=== PATIENT | male | born 1965 | race Caucasian/White ===

== ENCOUNTER → 2016-09-01 | Outpatient (CLI) | payer BC | LOC: OD 16:19 | PROVIDERS: ATTEND Nurse Practitioner | DX: M25.511 Pain in right shoulder (principal); M19.011 Primary osteoarthritis, right shoulder; M54.2 Cervicalgia; M47.892 Other spondylosis, cervical region | CPT/HCPCS: 72050 ==

== ENCOUNTER → 2016-09-15 | Outpatient (CLI) | payer BC | LOC: SP 14:58 | PROVIDERS: ATTEND Nurse Practitioner | DX: I70.8 Atherosclerosis of other arteries (principal) | CPT/HCPCS: 93880 ==

== ENCOUNTER 2016-09-25 07:30 | Day surgery (SDC) | payer BC ==
[~2016-09-25 07:30] MED LIST: DIPHENHYDRAMINE HCL 50 MG/ML VIAL ONE; EPINEPHRINE INJ 1 MG/10 ML DISP.SYRIN ONE; FENTANYL CITRATE INJ/PF 100 MCG/2 ML AMPUL ONE; FLUMAZENIL INJ 0.5 MG/5 ML VIAL IV ONE; GLUCAGON,HUMAN RECOMB 1 MG INJ ONE; MIDAZOLAM 2 MG/2 ML INJ ONE; NALOXONE HCL INJ/PF 0.4 MG/1 ML SDV ONE; ONDANSETRON HCL INJ/PF 4 MG/2 ML SDV ONE; PROMETHAZINE HCL INJ 25 MG/1 ML VIAL ONE
[2016-09-25] MEDS: MIDAZOLAM 2 MG/2 ML INJ ONE ×2 (08:07→08:11)
[2016-09-25 09:25] VITALS: BP 162/92
--- NOTE | 2016-09-25 11:33 | Operative Report ---
Operative Report DATE OF SURGERY: 09/25/16 Operative Report: The risks, benefits and alternatives are explained to the patient detail and informed consent is obtained. Patient is placed in a left lateral decubital position. Timeout is called. Conscious sedation medications administered. A rectal examination was done which did not reveal any masses, tears or fissures. An Olympus was scope is inserted into the patient's rectum. The scope was then gradually advanced all the way to the cecum. The cecum was identified by the usual anatomical landmarks including the ileocecal valve as well as the appendiceal office. Photodocumentation was obtained. Prep is good. Scope was then sequentially pulled back via the various segments of the colon including the ascending colon, hepatic flexure, transverse colon, splenic flexure, descending colon and finally into the rectosigmoid colon. Retroflexion maneuvers performed. PREOPERATIVE DIAGNOSIS: Colon rectal cancer screening POSTOPERATIVE DIAGNOSIS: 2 polyps noted in the descending colon area removed via snare polypectomy; 1 polyp was retrieved ,the other was ablated in situ. OPERATION: Colonoscopy with snare polypectomy SURGEON: BRUNILDA CHUNG ANESTHESIA: Moderate Sedation - 6 mg of Versed, 100 g of fentanyl. Conscious sedation monitoring time 30 minutes. TISSUE REMOVED OR ALTERED: Specimen retrieved is noted. COMPLICATIONS: None. ESTIMATED BLOOD LOSS: none. INTRAOPERATIVE FINDINGS: Findings as described above. No AVMs, diverticulosis noted PROCEDURE: Patient tolerated the procedure well. No immediate postprocedure complications are noted. Patient is discharged in good condition. Discharge date 09/25/2016. Discharge diet: Regular. Discharge activity: Regular. Five-year colon surveillance depending on the pathology of the polyp. Patient is instructed to call the office or proceed to the emergency room after any further problems or questions. We'll await on biopsies. Patient does have a 2-3 week follow-up to discuss findings.
== END 2016-09-25 09:26 | disposition home or self-care (01) ==
LOC: END 07:30
PROVIDERS: ATTEND Internal Medicine Gastroenterology
PROC: 0DBM8ZX Excision of Descending Colon, Via Natural or Artificial Opening Endoscopic, Diagnostic (ICD-10-PCS; principal; 2016-09-25 08:00)
DX: D12.4 Benign neoplasm of descending colon (principal); K92.1 Melena; I10 Essential (primary) hypertension; F17.210 Nicotine dependence, cigarettes, uncomplicated; Z79.899 Other long term (current) drug therapy
CPT/HCPCS: 45385; 88305 ×2; J2250; J3010; J0171; J1200; J1610; J2310; J2405; J2550; J3490

== ENCOUNTER → 2016-11-10 | Outpatient (CLI) | payer BC | LOC: RAD 15:37 | PROVIDERS: ATTEND Urology | DX: N20.0 Calculus of kidney (principal) | CPT/HCPCS: 74178; 82565 ==

== ENCOUNTER 2018-10-19 09:08 | Day surgery (SDC) | payer BC, OTHER ==
[~2018-10-19 09:08] MED LIST changes: +D5W IV PRN; -DIPHENHYDRAMINE HCL 50 MG/ML VIAL ONE; +DISPOSABLE IV PRN; -EPINEPHRINE INJ 1 MG/10 ML DISP.SYRIN ONE; -FENTANYL CITRATE INJ/PF 100 MCG/2 ML AMPUL ONE; -FLUMAZENIL INJ 0.5 MG/5 ML VIAL IV ONE; -GLUCAGON,HUMAN RECOMB 1 MG INJ ONE; -MIDAZOLAM 2 MG/2 ML INJ ONE; -NALOXONE HCL INJ/PF 0.4 MG/1 ML SDV ONE; +NITROGLYCERIN IV PRN; -ONDANSETRON HCL INJ/PF 4 MG/2 ML SDV ONE; -PROMETHAZINE HCL INJ 25 MG/1 ML VIAL ONE
[2018-10-19] MEDS ORDERED: LIDOCAINE 1% INJ-PF (10 MG/ML) 30 ML SDV ONE (10:17)
[2018-10-19] MEDS ORDERED: HEPARIN SODIUM,PORCINE/NS/PF 2,000 UNIT/1,000 ML RTUINJ IV ONE (10:18)
[2018-10-19] MEDS ORDERED: MIDAZOLAM 2 MG/2 ML INJ ONE (10:21)
[2018-10-19] MEDS ORDERED: HEPARIN SOD (PORCINE) 1,000 UNIT/ML 10 ML VIAL ONE (10:22)
[2018-10-19] MEDS ORDERED: FENTANYL CITRATE INJ/PF 100 MCG/2 ML AMPUL ONE (10:22)
[2018-10-19] MEDS ORDERED: DIPHENHYDRAMINE HCL 25 MG CAPSULE ONE (10:46)
[2018-10-19] MEDS ORDERED: DIAZEPAM 5 MG TABLET ONE (10:47)
[2018-10-19] MEDS ORDERED: ASPIRIN 325 MG TABLET ONE (10:47)
[2018-10-19] MEDS ORDERED: NITROGLYCERIN/D5W 50 MG/250 ML RTUINJ IV ONE (11:24)
--- NOTE | 2018-10-19 11:59 | Operative Report ---
Operative Report DATE OF SURGERY: 10/19/18 Operative Report: Left heart catheterization with selective coronary angiography PREOPERATIVE DIAGNOSIS: Chest pain POSTOPERATIVE DIAGNOSIS: Normal left-sided filling pressures. No evidence of significant aortic valve disease. Single-vessel coronary artery disease manifest by 70% stenosis of the mid vessel of a small codominant left-sided PDA OPERATION: Left heart catheterization with selective coronary angiography SURGEON: CARITO MORA ANESTHESIA: Moderate Sedation TISSUE REMOVED OR ALTERED: None COMPLICATIONS: None ESTIMATED BLOOD LOSS: None INTRAOPERATIVE FINDINGS: Normal left-sided filling pressures. No evidence of significant aortic stenosis. Single-vessel coronary artery disease manifest by a 70% stenosis of a small left-sided PDA PROCEDURE: Consent signed and on chart. Patient was prepped and draped in the usual sterile fashion and brought to the cardiac catheterization laboratory in the fasting state. Moderate conscious sedation was performed for 12 minutes. An independent trained observer pressure medications at my direction and continuous hemodynamic monitoring was performed. Utilizing a standard technique after 1% Xylocaine was demonstrated, the right radial artery was successfully cannulated. After 5000 units of heparin were administered and 200 mcg of nitroglycerin were administered left heart catheterization with subsequent coronary angiography was performed of the tiger catheter. Catheter selectively engaged the left circumflex was not able to be brought around to selectively engage the LAD Hemodynamics: In the sedated fasting state left ventricular pressure is 98/6 wi th an LVDP of 7. There is no significant transaortic gradient on pullback. Aortic pressure was 101/67. Selective coronary angiography was performed the following findings #1 The left main is short and length and moderate to large in caliber and bifurcates in the LAD and left circumflex and has mild luminal irregularities. The LAD is of moderate caliber and very tortuous and terminates at the apex. It provides a normal complement of septal perforators. There are 2 small diagonal branches. It is moderately calcific and has mild luminal irregularities. 3. The left circumflex is a large caliber vessel. It is codominant. It provides a small first obtuse marginal branch and 3 large obtuse marginal branches. There is a smaller left-sided codominant PDA. The left circumflex has mild luminal irregularities. The left-sided PDA has a 70% stenosis in a small caliber vessel. the right coronary small and tortuous and is codominant with a moderate to small sized right-sided PDA. It is otherwise free of significant disease Impression #1 normal left-sided filling pressures 2. No evidence of significant transaortic gradient on pullback. 3. Single-vessel coronary disease manifest by a 70% stenosis of the left-sided codominant PDA and a small caliber vessel. Plan #1 maximize medical therapy 2. Recommend longitudinal follow-up by patient's primary office agent.
--- NOTE | 2018-10-19 12:01 | Discharge Summary ---
Discharge Summary (SDC) - Discharge Final Diagnosis: Normal left-sided filling pressures No evidence of significant transaortic gradient on pullback. Single-vessel coronary disease manifest by 70% stenosis in a small left-sided codominant PDA Date of Surgery: 10/19/18 Discharge Date: 10/19/18 Condition: Good Referrals: LEILA BOOKER MD [Primary Care Provider] - Discharge Diet: Cardiac Discharge Activity: Activity As Tolerated, Balance Activity w/Rest, Bedrest, No Driving, Energy Conservation, Keep Legs Elevated, No Lifting Over 10 Pounds, No Lifting/Push/Pulling, Non-Ambulatory Child, Pelvic Rest, Slowly Increase Activity, Supervised Activity, No tub bath, Walk Frequently, Weigh Daily, Other
[2018-10-19 14:42] VITALS: BP 130/78
== END 2018-10-19 14:48 | disposition home or self-care (01) ==
LOC: CCL 09:08
PROVIDERS: ATTEND Internal Medicine Cardiovascular Disease
DX: R07.9 Chest pain, unspecified (principal); I25.10 Atherosclerotic heart disease of native coronary artery without angina pectoris
CPT/HCPCS: 93458; C1894; J2250; J3010; J1644 ×2; J3490 ×3

== ENCOUNTER 2018-10-20 11:52 | Emergency (ER) | payer OTHER ==
--- NOTE | 2018-10-20 12:37 | ER Document Report ---
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 ROS: Other than noted above, the 12 point review of systems was reviewed with the patient and were negative, all pertinent findings are included in the HPI. PHYSICAL EXAMINATION: Vital signs reviewed. GENERAL: Well-appearing, well-nourished and in no acute distress. HEAD: Atraumatic, normocephalic. EYES: Pupils equal round extraocular movements intact, conjunctiva are normal. ENT: Nares patent NECK: Normal range of motion CV: Heart regular rate and rhythm LUNGS: No respiratory distress Musculoskeletal: Normal range of motion, right upper extremity, there is mild diffuse edema to the right hand, Coban wrap removed, good radial pulse, good cap refill in all digits, no tenderness or swelling in the upper arm. NEUROLOGICAL: Normal speech PSYCH: Normal mood, normal affect. MDM: Patient seen and examined for rapid initial assessment. Vital signs reviewed. A comprehensive ED assessment and evaluation of the patient, analysis of test results and completion of the medical decision making process will be conducted by additional ED providers. *Note is created using voice recognition software and may contain spelling, syntax or grammatical errors. TRAVEL OUTSIDE OF THE [place] IN LAST 30 DAYS: No - Related Data Allergies/Adverse Reactions: No Known Allergies Allergy (Verified 10/20/18 11:53) Past Medical History - Social History Frequency of alcohol use: Social - Past Medical History Cardiac Medical History: Denies: Hx Coronary Artery Disease, Hx Heart Attack, Hx Hypertension Pulmonary Medical History: Denies: Hx Asthma, Hx Bronchitis, Hx COPD, Hx Pneumonia Neurological Medical History: Reports: Hx Cerebrovascular Accident - BLEED, NUMBNESS IN RIGHT LEG. Denies: Hx Seizures Renal/ Medical History: Denies: Hx Peritoneal Dialysis Musculoskeltal Medical History: Reports Hx Arthritis - Immunizations Hx Diphtheria, Pertussis, Tetanus Vaccination: Yes History of Influenza Vaccine for 04/2017 - 09/2017 Season: No Physical Exam - Vital signs Vitals: Temp Pulse Resp BP Pulse Ox 98.0 F 91 18 148/94 H 92 10/20/18 11:59 10/20/18 11:59 10/20/18 11:59 10/20/18 11:59 10/20/18 11:59 Course - Vital Signs Vital signs: Temp Pulse Resp BP Pulse Ox 98.0 F 91 18 148/94 H 92 10/20/18 11:59 10/20/18 11:59 10/20/18 11:59 10/20/18 11:59 10/20/18 11:59 Doctor's Discharge - Discharge Referrals: LEILA BOOKER MD [Primary Care Provider] - Follow up as needed
--- NOTE | 2018-10-20 13:52 | ER Document Report ---
ED General - General Chief Complaint: Arm Problem Stated Complaint: RIGHT ARM SWELLING Time Seen by Provider: 10/20/18 12:20 Primary Care Provider: CARITO MORA MD [ASSOCIATE] - Follow up in 3-5 days LEILA BOOKER MD [NO LOCAL MD] - Follow up as needed Notes: Patient is a 53-year-old male that presents to the emergency department for chief complaint of right arm swelling, had left heart cath yesterday through rad ial procedure, at this hospital, he had swelling in his hand and some pain, he had a tight Coban wrap, that was removed in triage here, still feeling some pressure, was told to get a venous duplex by his fleece tier office. He describes having some pain associated with it, as an aching sensation he rates as a 3 out of 10, and as a pressure. He denies having any chest pain, shortness of breath, difficulty breathing today, denies any nausea, vomiting or abdominal pain. Denies any prior history of blood clots in the past. Past Medical History: CAD, hypertension, hyperlipidemia Past Surgical History: Left heart catheterization Social History: Former smoker, denies current alcohol or illicit drug use. Family History: Reviewed and noncontributory for presenting illness Allergies: Reviewed, see documented allergy list. ROS: Other than noted above, the 12 point review of systems was reviewed with the patient and were negative, all pertinent findings are included in the HPI. PHYSICAL EXAMINATION: Vital signs reviewed. Nursing notes reviewed. GENERAL: Well-appearing, well-nourished and in no acute distress. HEAD: Atraumatic, normocephalic. EYES: Pupils equal round extraocular movements intact, conjunctiva are normal. ENT: Nares patent NECK: Normal range of motion CV: Heart regular rate and rhythm LUNGS: No respiratory distress Abdomen: Obese, soft, nontender. Musculoskeletal: Normal range of motion, right upper extremity, there is mild diffuse edema to the right hand, without erythema, Coban wrap removed, good radial pulse, good cap refill in all digits, no tenderness or swelling in the upper arm. The rest the patient's extremity exam is grossly unremarkable. NEUROLOGICAL: Normal speech PSYCH: Normal mood, normal affect. TRAVEL OUTSIDE OF THE [place] IN LAST 30 DAYS: No - Related Data Allergies/Adverse Reactions: No Known Allergies Allergy (Verified 10/20/18 11:53) Past Medical History - Social History Smoking Status: Former Smoker Frequency of alcohol use: Social Family History: Reviewed & Not Pertinent Patient has suicidal ideation: No Patient has homicidal ideation: No - Past Medical History Cardiac Medical History: Denies: Hx Coronary Artery Disease, Hx Heart Attack, Hx Hypertension Pulmonary Medical History: Denies: Hx Asthma, Hx Bronchitis, Hx COPD, Hx Pneumonia Neurological Medical History: Reports: Hx Cerebrovascular Accident - BLEED, NUMBNESS IN RIGHT LEG. Denies: Hx Seizures Renal/ Medical History: Denies: Hx Peritoneal Dialysis Musculoskeletal Medical History: Reports Hx Arthritis - Immunizations Hx Diphtheria, Pertussis, Tetanus Vaccination: Yes Physical Exam - Vital signs Vitals: Temp Pulse Resp BP Pulse Ox 98.0 F 91 18 148/94 H 92 10/20/18 11:59 10/20/18 11:59 10/20/18 11:59 10/20/18 11:59 10/20/18 11:59 Course - Re-evaluation Re-evalutation: Patient seen and examined vital signs reviewed. Imaging ordered as appropriate for the patient's presenting symptoms and complaint, with consideration of any critical or life threatening conditions that may be associated with their obtained history and exam as noted above. Results were reviewed when available and demonstrated negative duplex imaging of the right upper extremity The patient was re-evaluated and was stable Evaluation was most consistent with hand swelling and edema and pain secondary to dressing, which has since been removed, advised to keep the patient's arm elevated, to reduce the edema, he can also apply cool compresses at home for 20 minutes. Results were discussed with the patient at this point, after careful consideration I feel that that patient can be discharged from the emergency department, the patient was educated treatments and reasons to return to the emergency department based on their presumed diagnosis as noted above, they were advised to followup with a primary care physician in 2-3 days. Patient was agreeable to plan of care. *Note is created using voice recognition software and may contain spelling, syntax or grammatical errors. Venous Doppler Study 10/20/18 12:35 IMPRESSION: Negative examination for deep venous thrombosis in the right upper extremity. - Vital Signs Vital signs: Temp Pulse Resp BP Pulse Ox 98.4 F 79 18 142/98 H 97 10/20/18 13:59 10/20/18 13:59 10/20/18 13:59 10/20/18 13:59 10/20/18 13:59 Discharge - Discharge Clinical Impression: Arm swelling Condition: Stable Disposition: HOME, SELF-CARE Instructions: Edema, Peripheral ([facility]) Additional Instructions: Please follow-up with your fleece tier, I would advise you to keep your arm elevated while you are at home on a few pillows to keep it above your heart, to help reduce the swelling, you can also apply cool compress for 20 minutes on and 20 minutes off to the hand to help reduce the swelling as well. Referrals: LEILA BOOKER MD [NO LOCAL MD] - Follow up as needed CARITO MORA MD [ASSOCIATE] - Follow up in 3-5 days
[2018-10-20 14:01] VITALS: BP 142/98
--- NOTE | 2018-10-20 14:35 | RADIOLOGY REPORT (SQ) ---
EXAM DESCRIPTION: VENOUS UNILATERAL UPPER COMPLETED DATE/TIME: 10/20/2018 2:22 pm REASON FOR STUDY: RUE swelling recent heart cath COMPARISON: None. TECHNIQUE: Dynamic and static rodriguez scale and color images acquired of the right arm venous system. S elected spectral images acquired with additional compression and augmentation maneuvers. The contrala teral subclavian vein and internal jugular vein were also imaged. Images stored on PACS. LIMITATIONS: None. FINDINGS: INTERNAL JUGULAR VEIN: Normal phasicity, compression, augmentation. No visualized echogeni c material on rodriguez scale. No defects on color images. Comparison opposite side normal. SUBCLAVIAN VEIN: Normal compression, augmentation. No visualized echogenic material on rodriguez scale. No defects on color images. AXILLARY VEIN: Normal compression, augmentation. No visualized echogenic material on rodriguez scale. No d efects on color images. BRACHIAL VEIN: Normal compression, augmentation. No visualized echogenic material on rodriguez scale. No d efects on color images. BASILIC VEIN: Normal compression, augmentation. No visualized echogenic material on rodriguez scale. No de fects on color images. CEPHALIC VEIN: Normal compression, augmentation. No visualized echogenic material on rodriguez scale. No d efects on color images. OTHER: No other significant finding. IMPRESSION: Negative examination for deep venous thrombosis in the right upper extremity. TECHNICAL DOCUMENTATION: JOB ID: [id number] [employer]- All Rights Reserved Reading location - IP/workstation name: [email or web address]
== END 2018-10-20 14:02 | disposition home or self-care (01) ==
LOC: ER 11:52
DX: M79.89 Other specified soft tissue disorders (principal); Z98.890 Other specified postprocedural states; I25.10 Atherosclerotic heart disease of native coronary artery without angina pectoris; I10 Essential (primary) hypertension; E78.5 Hyperlipidemia, unspecified; Z87.891 Personal history of nicotine dependence
CPT/HCPCS: 93971; 99283

== ENCOUNTER → 2018-11-02 | Outpatient (CLI) | payer OTHER ==
--- NOTE | 2018-11-02 12:20 | RADIOLOGY REPORT (SQ) ---
EXAM DESCRIPTION: CERV SP 3 VIEW OR LESS COMPLETED DATE/TIME: 11/02/2018 11:32 am REASON FOR STUDY: NUMBNESS AND TINGLING OF RIGHT ARM (R20.0) R20.0 ANESTHESIA OF SKIN COMPARISON: None. NUMBER OF VIEWS: Three views. TECHNIQUE: AP, lateral and odontoid radiographic images acquired of the cervical spine. LIMITATIONS: Limited evaluation of C7 secondary to overlying soft tissues. . FINDINGS: MINERALIZATION: Normal. ALIGNMENT: Anatomic. VERTEBRAE: Vertebral bodies of normal height. DISCS: Mild disc height loss and osteophytosis at C6-7. Remaining discs are relatively well-maintain ed. HARDWARE: None in the spine. SOFT TISSUES: No discrete masses. Vascular calcifications noted. Lung apices clear. OTHER: No other significant finding. IMPRESSION: No acute bony abnormality of the cervical spine. Mild degenerative disc disease and osteophytosis greatest at C6-7. TECHNICAL DOCUMENTATION: JOB ID: [id number] [employer]- All Rights Reserved Reading location - IP/workstation name: [email or web address]
== END ==
LOC: RAD 11:00
PROVIDERS: ATTEND Nurse Practitioner Primary Care
DX: M54.12 Radiculopathy, cervical region (principal); R20.0 Anesthesia of skin
CPT/HCPCS: 72040

== ENCOUNTER → 2019-03-09 | Outpatient (CLI) | payer OTHER ==
--- NOTE | 2019-03-09 15:19 | RADIOLOGY REPORT (SQ) ---
EXAM DESCRIPTION: CT ABD/PELVIS NO ORAL OR IV COMPLETED DATE/TIME: 03/09/2019 1:03 pm REASON FOR STUDY: R33.9 RETENTION OF URINE, UNSPECIFIED R33.9 RETENTION OF URINE, UNSPECIFIED COMPARISON: None. TECHNIQUE: CT scan of the abdomen and pelvis performed without intravenous or oral contrast. Images reviewed with lung, soft tissue, and bone windows. Reconstructed coronal and sagittal MPR images revi ewed. All images stored on PACS. All CT scanners at this facility use dose modulation, iterative reconstruction, and/or weight based d osing when appropriate to reduce radiation dose to as low as reasonably achievable (ALARA). [facility]: Dose Right [facility]: CareDose [facility]: Dose Right [facility]: Teradose 4D [facility]: [employer] RADIATION DOSE: CT Rad equipment meets quality standard of care and radiation dose reduction techniq ues were employed. CTDIvol: 27.6 mGy. DLP: 1458 mGy-cm.mGy. LIMITATIONS: None. FINDINGS: LOWER CHEST: No significant findings. No nodules or infiltrates. NON-CONTRASTED LIVER, SPLEEN, ADRENALS: The liver is slightly heterogeneous, suggesting areas of foca l fatty infiltration. The spleen and adrenal glands are normal. PANCREAS: No masses. No peripancreatic inflammatory changes. GALLBLADDER: No identified stones by CT criteria. No inflammatory changes to suggest cholecystitis. RIGHT KIDNEY AND URETER: No suspicious masses. Assessment limited by lack of IV contrast. Numerous nonobstructing intrarenal calculi are present. No hydronephrosis or hydroureter. LEFT KIDNEY AND URETER: No suspicious masses. 9 cm upper pole cyst. Assessment limited by lack of I V contrast. There are numerous nonobstructing intrarenal calculi. No hydronephrosis or hydrourete r. AORTA AND RETROPERITONEUM: No aneurysm. No retroperitoneal masses or adenopathy. BOWEL AND PERITONEAL CAVITY: No obvious masses or inflammatory changes. No free fluid. APPENDIX: Normal. PELVIS, BLADDER, AND ABDOMINAL WALL:There is some thickening of the wall of the bladder. BONES: No significant findings. OTHER: No other significant finding. IMPRESSION: There are numerous nonobstructing intrarenal calculi bilaterally. There is no ureteral stone or obstruction. There is a 9 cm left renal cyst. There is thickening of the wall of the bladd er versus nondistention. Cannot entirely exclude some degree of bladder outlet obstruction, but the prostate gland does not appear significantly enlarged. COMMENT: Quality ID # [id number]: Final reports with documentation of one or more dose reduction techniques (e.g., Automated exposure control, adjustment of the mA and/or kV according to patient size, use of iterative reconstruction technique) TECHNICAL DOCUMENTATION: JOB ID: [id number] [employer]- All Rights Reserved Reading location - IP/workstation name: [email or web address]
== END ==
LOC: RAD 12:45
PROVIDERS: ATTEND Urology
DX: R33.9 Retention of urine, unspecified (principal)
CPT/HCPCS: 74176

== ENCOUNTER 2019-05-19 13:01 | Emergency (ER) | payer OTHER ==
--- NOTE | 2019-05-19 14:07 | ER Document Report ---
ED Medical Screen (RME) - General Chief Complaint: Flank Pain Stated Complaint: LEFT SIDE FLANK PAIN Time Seen by Provider: 05/19/19 13:56 Primary Care Provider: ARLETH ALVARENGA MD [Primary Care Provider] - Follow up as needed Notes: 53-year-old male with history of nephrolithiasis and recent ureteral stent placement and removal presents to the emergency department for ongoin left flank pain. Patient is unsure what the problem is but has had persistent pain and "I want answers". Denies fevers or chills, denies nausea or vomiting, complains of abdominal pain, denies any urinary symptoms or obstruction. Exam: Well-appearing in no acute distress, lungs clear to auscultation in all lindsay, regular cardiac rate and rhythm, no CVAT bilateral I have greeted and performed a rapid initial assessment of this patient. A comprehensive ED assessment and evaluation of the patient, analysis of test results and completion of medical decision making process will be conducted by an additional ED providers. TRAVEL OUTSIDE OF THE [place] IN LAST 30 DAYS: No - Related Data Allergies/Adverse Reactions: No Known Allergies Allergy (Verified 10/20/18 11:53) Past Medical History - Social History Chew tobacco use (# tins/day): No Frequency of alcohol use: Occasional Drug Abuse: None - Past Medical History Cardiac Medical History: Denies: Hx Coronary Artery Disease, Hx Heart Attack, Hx Hypertension Pulmonary Medical History: Denies: Hx Asthma, Hx Bronchitis, Hx COPD, Hx Pneumonia Neurological Medical History: Reports: Hx Cerebrovascular Accident - BLEED, NUMBNESS IN RIGHT LEG. Denies: Hx Seizures Renal/ Medical History: Denies: Hx Peritoneal Dialysis Musculoskeltal Medical History: Reports Hx Arthritis - Immunizations Hx Diphtheria, Pertussis, Tetanus Vaccination: Yes Physical Exam - Vital signs Vitals: Temp Pulse Resp BP Pulse Ox 98.2 F 86 16 117/91 H 93 05/19/19 13:16 05/19/19 13:16 05/19/19 13:16 05/19/19 13:16 05/19/19 13:16 Course - Vital Signs Vital signs: Temp Pulse Resp BP Pulse Ox 98.2 F 86 16 117/91 H 93 05/19/19 13:16 05/19/19 13:16 05/19/19 13:16 05/19/19 13:16 05/19/19 13:16 Doctor's Discharge - Discharge Referrals: ARLETH ALVARENGA MD [Primary Care Provider] - Follow up as needed
[2019-05-19] MEDS ORDERED: KETOROLAC TROMETHAMINE INJ/PF 30 MG/1 ML SDV IV ONE (14:08)
[2019-05-19 14:50] LABS: ABSOLUTE BASOPHILS # (AUTO) 0.1 10^3/uL (0.0-0.2); ABSOLUTE EOSINOPHILS # (AUTO) 0.4 10^3/uL (0.0-0.6); ABSOLUTE LYMPHOCYTES (AUTO) 1.9 10^3/uL (0.5-4.7); ABSOLUTE MONOCYTES (AUTO) 0.6 10^3/uL (0.1-1.4); BASOPHILS % (AUTO) 1.1 % (0-2); EOSINOPHILS % (AUTO) 5.4 % (0-6); HEMATOCRIT 50.3 % (37.9-51.0); LYMPHOCYTES % (AUTO) 23.7 % (13-45); MEAN CORPUSCULAR HEMOGLOBIN 31.6 pg (27.0-33.4); MEAN CORPUSCULAR HGB CONC 33.9 g/dL (32.0-36.0); MEAN CORPUSCULAR VOLUME 93 fl (80-97); MONOCYTES % (AUTO) 7.2 % (3-13); PLATELET COUNT 236 10^3/uL (150-450); RED BLOOD COUNT 5.38 10^6/uL (4.35-5.55); RED CELL DISTRIBUTION WIDTH 13.2 % (11.5-14.0); SEGMENTED NEUTROPHILS % (AUTO) 62.6 % (42-78); TOTAL CELLS COUNTED % (AUTO) 100 %
--- NOTE | 2019-05-19 15:40 | RADIOLOGY REPORT (SQ) ---
EXAM DESCRIPTION: U/S RETROPERITON (RENAL/AORTA) COMPLETED DATE/TIME: 05/19/2019 3:15 pm REASON FOR STUDY: ?calculi L side COMPARISON: CT of abdomen and pelvis without contrast 03/09/2019. TECHNIQUE: Dynamic and static grayscale images acquired of the kidneys and bladder and recorded on P ACS. Additional selected color Doppler and spectral images recorded. LIMITATIONS: None. FINDINGS: RIGHT KIDNEY: The right kidney measures 14.4 x 5.8 x 7.3 cm. There are multiple echodensi ties within the right kidney consistent with changes of a small renal calculi. No hydronephrosis. LEFT KIDNEY: The left kidney measures 14.2 x 6.3 x 6.7 cm. There are multiple echodensities within the left kidney consistent with multiple small renal calculi, largest measuring 0.9 cm. . Prominent simple cyst upper pole left kidney measuring 9.9 x 11.1 x 7.8 cm. Small adjacent cortical cyst note d. No hydronephrosis. BLADDER:: No abnormality seen. IMPRESSION: Multiple bilateral renal calculi. Simple cortical cyst upper pole left kidney. TECHNICAL DOCUMENTATION: JOB ID: [id number] [employer]- All Rights Reserved Reading location - IP/workstation name: [email or web address]
--- NOTE | 2019-05-19 15:53 | ER Document Report ---
ED General - General Chief Complaint: Flank Pain Stated Complaint: LEFT SIDE FLANK PAIN Time Seen by Provider: 05/19/19 13:56 Primary Care Provider: ARLETH ALVARENGA MD [Primary Care Provider] - Follow up as needed Notes: 53-year-old male with reported history of kidney stones, left ureteral stent is followed followed by Dr. Alvarenga and an unknown urologist who he says he try to get a hold off presents with about 3 days of worsening left flank pain. He is having intermittent left flank pain for about 6 weeks since the stent was placed and removed but denies fever belly pain nausea or vomiting. No hematuria. Nor mal urine output. TRAVEL OUTSIDE OF THE [place] IN LAST 30 DAYS: No - Related Data Allergies/Adverse Reactions: No Known Allergies Allergy (Verified 10/20/18 11:53) Past Medical History - Social History Smoking Status: Former Smoker Chew tobacco use (# tins/day): No Frequency of alcohol use: Occasional Drug Abuse: None Family History: Reviewed & Not Pertinent Patient has suicidal ideation: No Patient has homicidal ideation: No - Past Medical History Cardiac Medical History: Denies: Hx Coronary Artery Disease, Hx Heart Attack, Hx Hypertension Pulmonary Medical History: Denies: Hx Asthma, Hx Bronchitis, Hx COPD, Hx Pneumonia Neurological Medical History: Reports: Hx Cerebrovascular Accident - BLEED, NUMBNESS IN RIGHT LEG. Denies: Hx Seizures Renal/ Medical History: Denies: Hx Peritoneal Dialysis Musculoskeletal Medical History: Reports Hx Arthritis - Immunizations Hx Diphtheria, Pertussis, Tetanus Vaccination: Yes Review of Systems - Review of Systems Notes: REVIEW OF SYSTEMS GEN: Denies fever, chills, weight loss ENT: Denies sore throat, nasal discharge, ear pain EYES: Denies blurry vision, eye pain, discharge CV: Denies chest pain, palpitations, edema RESP: Denies cough, shortness of breath, wheezing GI: Denies abdominal pain, nausea, vomiting, diarrhea MSK: Back pain SKIN: Denies rash, skin lesions LYMPH: Denies swollen glands/lymph nodes NEURO: Denies headache, focal weakness or numbness, dizziness PSYCH: Denies depression, suicidal or homicidal ideation PHYSICAL EXAMINATION General: No acute distress, well-nourished Head: Atraumatic, normocephalic ENT: Mouth normal, oropharynx moist, no exudates or tonsillar enlargement Eyes: Conjunctiva normal, pupils equal, lids normal Neck: No JVD, supple, no guarding CVS: Normal rate, regular rhythm, no murmurs Resp: No resp distress, equal and normal breath sounds bilaterally GI: Nondistended, soft, no tenderness to palpation, no rebound or guarding Ext: No deformities, no edema, normal range of motion in upper and lower ext Back: No CVA or midline TTP Skin: No rash, warm Lymphatic: No lymphadeopathy noted Neuro: Awake, alert. Face symmetric. GCS 15. Physical Exam - Vital signs Vitals: Temp Pulse Resp BP Pulse Ox 98.2 F 86 16 117/91 H 93 05/19/19 13:16 05/19/19 13:16 05/19/19 13:16 05/19/19 13:16 05/19/19 13:16 Course - Re-evaluation Re-evalutation: 05/19/19 16:14 Intermittent flank pain after ureteral stenting without lower urinary tract is not hematuria, tenderness or fever. Ultrasound ordered at triage is bilateral small stones but no hydronephrosis. That is likely been removed at the patient reports. Urine does not show evidence of florid urinary inflammationantibiotic tonight negative. He looks quite comfortable after Toradol. Will recommend Motrin and follow-up with urology. No indication for CT or septic work-up at this time. I have discussed with the patient there likely diagnosis, aftercare plan, follow- up plans and my usual and customary return precautions. They verbalized understanding of this. - Vital Signs Vital signs: Temp Pulse Resp BP Pulse Ox 98.2 F 86 16 117/91 H 93 05/19/19 13:16 05/19/19 13:16 05/19/19 13:16 05/19/19 13:16 05/19/19 13:16 - Laboratory Result Diagrams: 05/19/19 14:15 05/19/19 14:15 Laboratory results interpreted by me: 05/19/19 14:31 Urine Ascorbic Acid 40 H Discharge - Discharge Clinical Impression: Bilateral nephrolithiasis Condition: Good Disposition: HOME, SELF-CARE Instructions: Kidney Stone ([facility]) Additional Instructions: call your UROLOGIST for follow up in 3 days- may need further stents Prescriptions: Ibuprofen 600 mg PO Q6HP PRN 14 Days capsule PRN Reason: Referrals: ARLETH ALVARENGA MD [Primary Care Provider] - Follow up as needed
[2019-05-19 15:59] LABS: APPEARANCE,URINE CLEAR; BILIRUBIN,URINE NEGATIVE (NEGATIVE); COLOR,URINE YELLOW; GLUCOSE, URINE NEGATIVE (NEGATIVE); KETONES,URINE NEGATIVE (NEGATIVE); LEUKOCYTE ESTERASE,URINE NEGATIVE (NEGATIVE); NITRITE,URINE NEGATIVE (NEGATIVE); PROTEIN,URINE NEGATIVE (NEGATIVE); URINE SPECIFIC GRAVITY 1.016; UROBILINOGEN,URINE NEGATIVE mg/dL (<2.0)
[2019-05-19 16:36] VITALS: BP 125/81
== END 2019-05-19 16:35 | disposition home or self-care (01) ==
LOC: ER 13:01
DX: N20.0 Calculus of kidney (principal); R10.9 Unspecified abdominal pain; M54.9 Dorsalgia, unspecified; Z98.890 Other specified postprocedural states; Z87.891 Personal history of nicotine dependence
CPT/HCPCS: 99284; 96374; 81001; 76770; J1885; 36415; 85025

== ENCOUNTER → 2019-06-02 | Outpatient (CLI) | payer OTHER ==
--- NOTE | 2019-06-02 11:17 | RADIOLOGY REPORT (SQ) ---
EXAM DESCRIPTION: CT ABD/PELVIS NO ORAL OR IV COMPLETED DATE/TIME: 06/02/2019 9:58 am REASON FOR STUDY: NEPHROLITHIASIS (N20.0) N20.0 CALCULUS OF KIDNEY COMPARISON: 03/09/2019 TECHNIQUE: CT scan of the abdomen and pelvis performed without intravenous or oral contrast. Images reviewed with lung, soft tissue, and bone windows. Reconstructed coronal and sagittal MPR images revi ewed. All images stored on PACS. All CT scanners at this facility use dose modulation, iterative reconstruction, and/or weight based d osing when appropriate to reduce radiation dose to as low as reasonably achievable (ALARA). [facility]: Dose Right [facility]: CareDose [facility]: Dose Right [facility]: Teradose 4D [facility]: [employer] RADIATION DOSE: CT Rad equipment meets quality standard of care and radiation dose reduction techniq ues were employed. CTDIvol: 28.7 mGy. DLP: 1651 mGy-cm.mGy. LIMITATIONS: None. FINDINGS: LOWER CHEST: No significant findings. No nodules or infiltrates. NON-CONTRASTED LIVER, SPLEEN, ADRENALS: Evaluation limited by lack of IV contrast. No identified sign ificant masses. PANCREAS: No masses. No peripancreatic inflammatory changes. GALLBLADDER: No identified stones by CT criteria. No inflammatory changes to suggest cholecystitis. RIGHT KIDNEY AND URETER: No suspicious masses. Assessment limited by lack of IV contrast. Numerous nonobstructing intrarenal calculi. No hydronephrosis or hydroureter. LEFT KIDNEY AND URETER: No solid masses. There is an 8 cm upper pole cyst. There are numerous nono bstructing intrarenal calculi. No hydronephrosis or hydroureter. AORTA AND RETROPERITONEUM: No aneurysm. No retroperitoneal masses or adenopathy. BOWEL AND PERITONEAL CAVITY: No obvious masses or inflammatory changes. No free fluid. APPENDIX: The appendix is thickened, measuring 10 mm. There is no juan appendiceal stranding, howeve r. PELVIS, BLADDER, AND ABDOMINAL WALL:There is thickening of the bladder wall. No pelvic mass or fluid collection. Uncomplicated inguinal hernias, right more than left. BONES: No significant findings. OTHER: No other significant finding. IMPRESSION: 1. There are numerous intrarenal calculi bilaterally. No ureteral stone or obstruction . 2. Thickening of the bladder wall. Correlate for cystitis or bladder outlet obstruction. 3. The appendix is thickened. There is no juan appendiceal stranding. Correlate for appendicitis. COMMENT: Quality ID # 436: Final reports with documentation of one or more dose reduction techniques (e.g., Automated exposure control, adjustment of the mA and/or kV according to patient size, use of iterative reconstruction technique) TECHNICAL DOCUMENTATION: JOB ID: [id number] [employer]- All Rights Reserved Reading location - IP/workstation name: [email or web address]
== END ==
LOC: RAD 09:42
PROVIDERS: ATTEND Urology
DX: N20.0 Calculus of kidney (principal)
CPT/HCPCS: 74176

== ENCOUNTER 2019-06-26 14:58 | Emergency (ER) | payer OTHER ==
--- NOTE | 2019-06-26 15:45 | ER Document Report ---
ED Medical Screen (RME) - General Chief Complaint: Feet Swelling Stated Complaint: FOOT SWELLING Time Seen by Provider: 06/26/19 15:41 Primary Care Provider: ARLETH ALVARENGA MD [Primary Care Provider] - Follow up as needed Mode of Arrival: Ambulatory Information source: Patient Notes: Patient presents complaining of bilateral lower extremity swelling for the past 2 weeks. Patient also complains of swelling to the hands and abdomen. Patient states he has been short of breath and having to sleep in his recliner. Patient denies any cough or cold symptoms. Patient denies any history of CHF. Patient does have a history of hypertension and CAD. I have greeted and performed a rapid initial assessment of this patient. A comprehensive ED assessment and evaluation of the patient, analysis of test results and completion of the medical decision making process will be conducted by additional ED providers. TRAVEL OUTSIDE OF THE [place] IN LAST 30 DAYS: No - Related Data Allergies/Adverse Reactions: No Known Allergies Allergy (Verified 10/20/18 11:53) Past Medical History - Past Medical History Cardiac Medical History: Denies: Hx Coronary Artery Disease, Hx Heart Attack, Hx Hypertension Pulmonary Medical History: Denies: Hx Asthma, Hx Bronchitis, Hx COPD, Hx Pneumonia Neurological Medical History: Reports: Hx Cerebrovascular Accident - BLEED, NUMBNESS IN RIGHT LEG. Denies: Hx Seizures Renal/ Medical History: Denies: Hx Peritoneal Dialysis Musculoskeltal Medical History: Reports Hx Arthritis - Immunizations Hx Diphtheria, Pertussis, Tetanus Vaccination: Yes Physical Exam - Vital signs Vitals: Temp Pulse Resp BP Pulse Ox 97.6 F 72 18 159/87 H 97 06/26/19 15:09 06/26/19 15:09 06/26/19 15:09 06/26/19 15:09 06/26/19 15:09 - General General appearance: Alert Notes: 3+ edema to bilateral lower extremities, respirations unlabored Course - Vital Signs Vital signs: Temp Pulse Resp BP Pulse Ox 97.6 F 72 18 159/87 H 97 06/26/19 15:09 06/26/19 15:09 06/26/19 15:09 06/26/19 15:09 06/26/19 15:09 Doctor's Discharge - Discharge Referrals: ARLETH ALVARENGA MD [Primary Care Provider] - Follow up as needed
[2019-06-26 16:29] LABS: ABSOLUTE EOSINOPHILS # (AUTO) 0.8 10^3/uL (0.0-0.6); ABSOLUTE LYMPHOCYTES (AUTO) 1.7 10^3/uL (0.5-4.7); ABSOLUTE MONOCYTES (AUTO) 0.5 10^3/uL (0.1-1.4); ABSOLUTE NEUT (AUTO) 4.7 10^3/uL (1.7-8.2); BASOPHILS % (AUTO) 0.3 % (0-2); EOSINOPHILS % (AUTO) 9.7 % (0-6); HEMATOCRIT 48.4 % (37.9-51.0); HEMOGLOBIN 16.8 g/dL (13.5-17.0); LYMPHOCYTES % (AUTO) 22.3 % (13-45); MEAN CORPUSCULAR HEMOGLOBIN 32.3 pg (27.0-33.4); MEAN CORPUSCULAR HGB CONC 34.7 g/dL (32.0-36.0); MEAN CORPUSCULAR VOLUME 93 fl (80-97); MONOCYTES % (AUTO) 6.9 % (3-13); PLATELET COUNT 210 10^3/uL (150-450); RED BLOOD COUNT 5.21 10^6/uL (4.35-5.55); RED CELL DISTRIBUTION WIDTH 13.2 % (11.5-14.0); SEGMENTED NEUTROPHILS % (AUTO) 60.8 % (42-78); TOTAL CELLS COUNTED % (AUTO) 100 %; WHITE BLOOD COUNT 7.8 10^3/uL (4.0-10.5)
--- NOTE | 2019-06-26 16:35 | RADIOLOGY REPORT (SQ) ---
EXAM DESCRIPTION: CHEST 2 VIEWS COMPLETED DATE/TIME: 06/26/2019 4:17 pm REASON FOR STUDY: sob COMPARISON: CT of the abdomen pelvis without contrast from 06/02/2019. EXAM PARAMETERS: NUMBER OF VIEWS: two views TECHNIQUE: Digital Frontal and Lateral radiographic views of the chest acquired. RADIATION DOSE: NA LIMITATIONS: none FINDINGS: LUNGS AND PLEURA: Left basilar atelectasis. No consolidation, pleural effusion or pneumot horax. MEDIASTINUM AND HILAR STRUCTURES: No mediastinal or hilar contour abnormality. HEART AND VASCULAR STRUCTURES: The cardiac silhouette and pulmonary vasculature are within normal atkins its. BONES: No acute findings. HARDWARE: None in the chest. OTHER: No other finding. IMPRESSION: Left basilar atelectasis. No acute cardiopulmonary process. TECHNICAL DOCUMENTATION: JOB ID: [id number] [employer]- All Rights Reserved Reading location - IP/workstation name: [email or web address]
[2019-06-26 16:47] LABS: ALBUMIN 4.4 g/dL (3.5-5.0); ALKALINE PHOSPHATASE 73 U/L (38-126); ANION GAP 9 (5-19); ASPARTATE AMINO TRANSFERASE 30 U/L (17-59); BILIRUBIN,DIRECT 0.1 mg/dL (0.0-0.4); BILIRUBIN,TOTAL 0.5 mg/dL (0.2-1.3); BLOOD UREA NITROGEN 16 mg/dL (7-20); CALCIUM 9.7 mg/dL (8.4-10.2); CARBON DIOXIDE 26 mmol/L (22-30); CHLORIDE 102 mmol/L (98-107); GLUCOSE 105 mg/dL (75-110); POTASSIUM 4.6 mmol/L (3.6-5.0); TOTAL PROTEIN 8.5 g/dL (6.3-8.2)
[2019-06-26 16:59] LABS: NT PRO BNP 145 pg/mL (<125)
[2019-06-26 17:04] LABS: TROPONIN I < 0.012 ng/mL
[2019-06-26] MEDS ORDERED: FUROSEMIDE INJ/PF 20 MG/2 ML SDV IV ONE (17:19)
--- NOTE | 2019-06-26 18:55 | ER Document Report ---
ED General - General Mode of Arrival: Ambulatory TRAVEL OUTSIDE OF THE [place] IN LAST 30 DAYS: No <JUSTIN SEWELL - Last Filed: 06/26/19 19:41> <FELIPE FIELD - Last Filed: 06/26/19 23:21> - General Chief Complaint: Swelling Stated Complaint: FOOT SWELLING Time Seen by Provider: 06/26/19 15:41 Primary Care Provider: ARLETH ALVARENGA MD [NO LOCAL MD] - Follow up as needed Notes: 53-year-old male presents with bilateral lower extremity swelling for the past several weeks. Patient also states he has been having some swelling in his hands and abdomen. Patient also states he is having some dyspnea which is worse with laying flat. Patient states for the last several days he has been sleeping in a recliner. Patient also states he is having some mild chest discomfort. Patient states he had similar chest discomfort a few years ago and was worked up by cardiology and was told that it was GERD. Patient states he usually gets better with his reflux medicine however he does not always remember to take it. Patient states he has a past medical history of stroke, kidney stones, hypertension. Patient denies history of CHF. Patient states he has told his primary care doctor about the swelling however it has "never been this bad before." Patient also states he has had a 40 pound weight gain in 6 months. Patient denies fever, chills, abdominal pain, nausea/vomiting, diarrhea. (JUSTIN SEWELL) - Related Data Allergies/Adverse Reactions: No Known Allergies Allergy (Verified 10/20/18 11:53) Past Medical History - General Information source: Patient - Social History Smoking Status: Former Smoker Family History: Reviewed & Not Pertinent Patient has suicidal ideation: No Patient has homicidal ideation: No - Past Medical History Cardiac Medical History: Denies: Hx Coronary Artery Disease, Hx Heart Attack, Hx Hypertension Pulmonary Medical History: Denies: Hx Asthma, Hx Bronchitis, Hx COPD, Hx Pneumonia Neurological Medical History: Reports: Hx Cerebrovascular Accident - BLEED, NUMBNESS IN RIGHT LEG. Denies: Hx Seizures Renal/ Medical History: Denies: Hx Peritoneal Dialysis Musculoskeletal Medical History: Reports Hx Arthritis - Immunizations Hx Diphtheria, Pertussis, Tetanus Vaccination: Yes <JUSTIN SEWELL - Last Filed: 06/26/19 19:41> Review of Systems <JUSTIN SEWELL R - Last Filed: 06/26/19 19:41> - Review of Systems Notes: Constitutional: Positive for weight gain. Negative for fever. HENT: Negative for sore throat. Eyes: Negative for visual changes. Cardiovascular: Positive for chest pain. Respiratory: Positive for shortness of breath. Gastrointestinal: Positive for abdominal distention. Negative for abdominal pain, vomiting or diarrhea. Genitourinary: Negative for dysuria. Musculoskeletal: Positive for bilateral leg/hand swelling. Negative for back pain. Skin: Negative for rash. Neurological: Negative for headaches, weakness or numbness. 10 point ROS negative except as marked above and in HPI. (JUSTIN SEWELL) Physical Exam <SEWELLLARISSAJUSTIN R - Last Filed: 06/26/19 19:41> - Vital signs Vitals: Temp Pulse Resp BP Pulse Ox 97.6 F 72 18 159/87 H 97 06/26/19 15:09 06/26/19 15:09 06/26/19 15:09 06/26/19 15:09 06/26/19 15:09 - Notes Notes: GENERAL: Well-appearing, well-nourished and in no acute distress. HEAD: Atraumatic, normocephalic. EYES: Extraocular movements intact, sclera anicteric, conjunctiva are normal. NECK: Normal range of motion, supple without lymphadenopathy or JVD. LUNGS: Breath sounds clear to auscultation bilaterally and equal. No wheezes rales or rhonchi. No tachypnea. HEART: Regular rate and rhythm without murmurs, rubs or gallops. ABDOMEN: Soft, nontender, mild abdominal distention. No guarding, no rebound. No masses appreciated. EXTREMITIES: 2+ pitting edema to bilateral lower extremities. No appreciable edema to upper extremities. Normal range of motion. No clubbing or cyanosis. NEUROLOGICAL: Cranial nerves II through XII grossly intact. Normal speech, normal gait. PSYCH: Normal mood, normal affect. SKIN: Warm, Dry, normal turgor, no rashes or lesions noted. (JUSTIN SEWELL) Course - Laboratory Result Diagrams: 06/26/19 16:10 06/26/19 16:10 <JUSTIN SEWELL - Last Filed: 06/26/19 19:41> - Laboratory Result Diagrams: 06/26/19 16:10 06/26/19 16:10 <FELIPE FIELD - Last Filed: 06/26/19 23:21> - Re-evaluation Re-evalutation: 06/26/19 53 y/o male presents with orthopnea and bilateral LE edema with abdomin al distention. Nontoxic, well appearing. SpO2 is 94-98% on RA. Lungs clear to auscultation bilaterally. RRR. Abd soft, mildly distended. Bilateral LE 2+ pitting edema. CXR shows mild atelectasis. BNP mildly elevated. No leukocytosis. CMP WNL. Troponin negative. 06/26/19 18:56 Pt ambulated on RA with SpO2 - 94-95% and felt mildly short of breath. US tech states neg for DVT. 06/26/19 19:41 D-dimer mildly elevated. CTA chest ordered. (JUSTIN SEWELL) 06/26/19 20:40 Report received from previous shift. Patient currently pending CTA. I was called to the bedside as patient was refusing his CTA stating that he cannot lay flat. Patient reevaluated, his lungs are clear, he is alert, oriented, handling secretions without difficulty. I will medicate patient with 1 mg of Ativan IV, will also add on a CT soft tissue neck as patient continues to report that he cannot swallow due to some type of what he perceives as an obstruction in the back of his throat. 06/26/19 23:14 CT soft tissue neck and CT a of the chest were both negative for any acute findings. There was a small pulmonary nodule noted on CT, recommend follow-up in 12 months with repeat imaging. This was discussed with the patient. Patient does report symptomatic improvement after administration of a GI cocktail here in the emergency department. He will close follow-up with his primary care. ED return precautions discussed, patient verbalized understanding and agreement with same. (FELIPE FIELD) - Vital Signs Vital signs: Temp Pulse Resp BP Pulse Ox 97.6 F 72 18 134/98 H 94 06/26/19 15:09 06/26/19 15:09 06/26/19 20:01 06/26/19 20:01 06/26/19 20:01 - Laboratory Laboratory results interpreted by me: 06/26/19 06/26/1919 16:10 16:10 16:10 Eos % (Auto) 9.7 H Absolute Eos (auto) 0.8 H D-Dimer NT-Pro-B Natriuret Pep 145 H Total Protein 8.5 H 06/26/19 16:10 Eos % (Auto) Absolute Eos (auto) D-Dimer 0.71 H NT-Pro-B Natriuret Pep Total Protein Discharge <JUSTIN SEWELL R - Last Filed: 06/26/19 19:41> <RASHIDAFELIPE C - Last Filed: 06/26/19 23:21> - Discharge Clinical Impression: Lower extremity edema, Postnasal drip Condition: Stable Disposition: HOME, SELF-CARE Additional Instructions: Your work-up here in the emergency department today did not reveal any life- threatening abnormalities. A copy of all your lab results as well as radiology testing is provided in this packet so that your primary care provider can review it. We also did a venous Doppler ultrasound to both of your lower extremities to evaluate for DVT/blood clots. These tests were negative. Your chest x-ray and blood work did not show any evidence of congestive heart failure. You are likely suffering from peripheral edema, your primary care provider may want to start you on a diuretic for this. As discussed there was a small pulmonary nodule noted on your CT, and the radiologist recommends follow-up on this within 12 months. Please take the results to your primary care provider so that they can address these findings. Please take medications that I have prescribed to help with your postnasal drip/throat discomfort. Drink plenty of fluids. C onsider purchasing some compression stockings to help with your lower extremity edema. Return to the emergency department with any new or worsening symptoms. Please purchase CORICIDIN HBP for your symptoms. Ask your pharmacist to help you find this. Prescriptions: Prednisone [Deltasone] 60 mg PO DAILY #15 tablet Referrals: ARLETH ALVARENGA MD [NO LOCAL MD] - Follow up as needed
--- NOTE | 2019-06-26 19:28 | RADIOLOGY REPORT (SQ) ---
EXAM DESCRIPTION: KUB/ABDOMEN (SINGLE VIEW) COMPLETED DATE/TIME: 06/26/2019 7:10 pm REASON FOR STUDY: abd distention COMPARISON: 06/02/2019. NUMBER OF VIEWS: One view. TECHNIQUE: Supine radiographic image of the abdomen acquired. LIMITATIONS: None. FINDINGS: BOWEL GAS PATTERN: Normal bowel gas pattern. No dilated loops. Formed stool throughout th e colon. CALCIFICATIONS: Multiple calcifications overlying both kidneys compatible with renal stones. Additio nal calcific densities overlie the pelvis, likely pelvic phleboliths although distal ureteral stone i s not entirely excluded. SOFT TISSUES: No gross mass or suggestion of organomegaly. HARDWARE: None in the abdomen. BONES: No acute fracture. No worrisome bone lesions. OTHER: No other significant finding. IMPRESSION: No evidence of intestinal obstruction or other acute intra-abdominal/pelvic process. Multiple bilateral renal stones. TECHNICAL DOCUMENTATION: JOB ID: [id number] [employer]- All Rights Reserved Reading location - IP/workstation name: [email or web address]
[2019-06-26] MEDS ORDERED: LORAZEPAM INJ 2 MG/1 ML VIAL IV ONE (20:39)
[2019-06-26] MEDS ORDERED: METOCLOPRAMIDE HCL ORAL SOLN 10 MG/10 ML UDCUP PO ONE (20:39)
[2019-06-26] MEDS ORDERED: MAG HYDROX/AL HYDROX/SIMETH SUSP 30 ML UDCUP PO ONE (20:39)
[2019-06-26] MEDS ORDERED: LIDOCAINE 2% VISCOUS SOLN 20 ML UDCUP PO ONE (20:39)
--- NOTE | 2019-06-26 20:39 | RADIOLOGY REPORT (SQ) ---
EXAM DESCRIPTION: US EXTREMITY VEINS BILATERAL COMPLETED DATE/TME: 06/26/2019 16:59 CLINICAL HISTORY: 53 years, Male, bilateral lower leg swelling COMPARISON: None. TECHNIQUE: LIMITATIONS: None. FINDINGS: The common femoral, femoral, popliteal, posterior tibial and peroneal veins are patent and compressible bilaterally. Venous Doppler waveforms are unremarkable. IMPRESSION: No evidence of deep venous thrombosis. copyright 2010 [employer]- All Rights Reserved
--- NOTE | 2019-06-26 22:18 | RADIOLOGY REPORT (SQ) ---
EXAM DESCRIPTION: CT CHEST ANGIOGRAPHY WITHOUT THEN WITH IV CONTRAST, CT NECK WITH IV CONTRAST COMPLETED DATE/TME: 06/26/2019 19:41 (accession [id number]), 06/26/2019 20:41 (accession [id number]) CLINICAL HISTORY: 53 years, Male, dyspnea, elevated d-dimer; difficulty swallowing COMPARISON: None. TECHNIQUE: Contrast enhanced CT of the neck and chest was performed after the uneventful administration of intravenous contrast. Oblique MIPS were created. Images were obtained after the uneventful administration of 100 mL of Omnipaque 350 intravenous contrast. Images stored on PACS. All CT scanners at this facility use dose modulation, iterative reconstruction, and/or weight based dosing when appropriate to reduce radiation dose to as low as reasonably achievable (ALARA). [facility]: Dose Right [facility]: CareDose [facility]: Dose Right [facility]: Teradose 4D [facility]: [employer] LIMITATIONS: None. FINDINGS: Central airways are patent. Lung windows show mild upper zone predominant emphysematous change. Visualized is a 3 mm solid nodule located within the right upper lobe on image 80 of series 4. No suspicious features. An additional 3 mm subpleural nodule is noted within the right upper lobe posterior segment on image 88 of series 4. No suspicious features. No additional pulmonary nodules are evident. Bands of opacity are evident about the lingula and basilar segments of the left lower lobe, indicating areas of atelectasis and/or scar. Mediastinal windows show no significant hilar or mediastinal lymph node enlargement. Calcifications are evident about the coronary vessels. There is a trace pericardial effusion. The study is somewhat limited for the evaluation of pulmonary emboli secondary to contrast bolus timing. In addition, portions of the Central pulmonary arterial vasculature on the right are obscured by streak artifact from the contrast bolus within the adjacent SVC. Limited evaluation of the upper abdomen reveals a fluid density lesion emanating from the upper pole of the left kidney, indicative of a simple cyst. There is a tiny hiatal hernia. Limited evaluation of the upper abdomen reveals no suspicious findings. Bone windows show no destructive osseous lesions. Visualized portions of the bilateral parotid and submandibular glands appear normal. Thyroid gland enhances symmetrically. The hypopharynx, oropharynx, and nasopharynx show no suspicious finding. No suspicious deep cervical lymphadenopathy is appreciated. Mild mucosal thickening is noted about the visualized portions of both maxillary antra. Visualized osseous structures of the neck show no suspicious abnormality either. IMPRESSION: No definitive evidence of pulmonary embolism. No acute findings within the imaged neck. 3.0 mm solid pulmonary nodule within the upper lobe. A non-contrast Chest CT at 12 months is optional. If performed and the nodule is stable at 12 months, no further follow-up is recommended. These guidelines do not apply to immunocompromised patients and patients with cancer. Follow up in patients with significant comorbidities as clinically warranted. For lung cancer screening, adhere to Lung-RADS guidelines. Reference: Radiology. 2017; 284(1):228-43. TECHNICAL DOCUMENTATION: Quality ID # 436: Final reports with documentation of one or more dose reduction techniques (e.g., Automated exposure control, adjustment of the mA and/or kV according to patient size, use of iterative reconstruction technique) copyright 2011 [employer]- All Rights Reserved
--- NOTE | 2019-06-26 22:28 | EKG REPORT ---
SEVERITY:- NORMAL ECG - SINUS RHYTHM : Confirmed by: Lissette Soto MD 26-Jun-2019 22:27:33
[2019-06-26 23:42] VITALS: BP 132/85
== END 2019-06-26 23:32 | disposition home or self-care (01) ==
LOC: ER 14:58
DX: R60.0 Localized edema (principal); R09.82 Postnasal drip; R06.00 Dyspnea, unspecified; R07.9 Chest pain, unspecified; R63.5 Abnormal weight gain; R06.02 Shortness of breath; R14.0 Abdominal distension (gaseous); I10 Essential (primary) hypertension; Z87.891 Personal history of nicotine dependence
CPT/HCPCS: 93005; 99284; 96374; 96375; 36415; 85025; 80053; 84484; 85379; 83880; 93970; 71046; 74018; 70491; 71275; 93010; J1940; J3490; J2060

== ENCOUNTER → 2019-08-16 | Outpatient (CLI) | payer OTHER ==
--- NOTE | 2019-08-16 09:30 | RADIOLOGY REPORT (SQ) ---
EXAM DESCRIPTION: U/S ABDOMEN LIMITED W/O DOP COMPLETED DATE/TIME: 08/16/2019 9:19 am REASON FOR STUDY: (R14.0)ABDOMINAL DISTENSION (GASEOUS) R14.0 ABDOMINAL DISTENSION (GASEOUS) COMPARISON: None. TECHNIQUE: Dynamic and static grayscale images acquired of the abdomen and recorded on PACS. Additio nal selected color Doppler and spectral images recorded. LIMITATIONS: None. FINDINGS: PANCREAS: No masses. Visualized pancreatic duct normal caliber. LIVER: The liver is echogenic consistent with fatty infiltration. No focal masses. The liver is enl arged measured 24.3 cm in cranial caudal dimensions. LIVER VASCULATURE: Normal directional flow of the main portal vein and hepatic veins. GALLBLADDER: No stones. Normal wall thickness. No pericholecystic fluid. ULTRASOUND-DETECTED AKERS'S SIGN: Negative. INTRAHEPATIC DUCTS AND COMMON DUCT: CBD and intrahepatic ducts normal caliber. No filling defects. INFERIOR VENA CAVA: Obscured by overlying bowel gas. AORTA: Visualized aorta are normal in caliber. RIGHT KIDNEY: No hydronephrosis. The right kidney measures 14.2 cm in length. Multiple echogenic f oci consistent with renal stones as previously documented. PERITONEAL AND RIGHT PLEURAL SPACE: No ascites or effusions. OTHER: No other significant findings. IMPRESSION: 1. Hepatic steatosis with hepatomegaly. 2. Multiple right renal stones. No hydronephrosis. TECHNICAL DOCUMENTATION: JOB ID: [id number] [employer]- All Rights Reserved Reading location - IP/workstation name: [email or web address]
== END ==
LOC: RAD 08:32
PROVIDERS: ATTEND Nurse Practitioner Primary Care
DX: R14.0 Abdominal distension (gaseous) (principal); N20.0 Calculus of kidney; K76.0 Fatty (change of) liver, not elsewhere classified; R16.0 Hepatomegaly, not elsewhere classified
CPT/HCPCS: 76705